=== PATIENT | male | born 1960 | race Hispanic/Latino ===

== ENCOUNTER → 2017-04-29 | Outpatient (CLI) | payer MEDICARE ==
--- NOTE | 2017-05-07 16:31 | Pulmonary Function Test ---
DATE OF STUDY: April 30, 2017 SPIROMETRY: Spirometry demonstrates evidence of moderate to severe obstruction. FEV1 decreased at 1.69 liters or 51% predicted, FVC 2.60 liters or 61% predicted in the setting of decreased FEV1 over FVC ratio. After bronchodilator administration, there was 18% FEV1 change and 15% FVC change. Flow volume loop demonstrates mildly scooped-out expiratory limb and normal inspiratory limb suggestive of common obstructive diseases such as asthma or bronchitis. LUNG VOLUMES: Lung volumes performed by nitrogen washout testing demonstrated no evidence of restriction. Total lung capacity 6.99 liters or 107% predicted but mild hyperinflation noted with RV of 148% predicted. DIFFUSION CAPACITY: Diffusion capacity with moderate decrease at 14.75 mL per mmHg per minute or 50% predicted. SUMMARY: Moderate to severe obstruction with moderate diffusion impairment. This is most often seen in emphysema. Clinical correlation is recommended. Job#: [id number] EV
== END ==
LOC: RESP 13:48
PROVIDERS: ATTEND Internal Medicine Critical Care Medicine
DX: J42 Unspecified chronic bronchitis (principal); J44.9 Chronic obstructive pulmonary disease, unspecified; C34.90 Malignant neoplasm of unspecified part of unspecified bronchus or lung; J84.10 Pulmonary fibrosis, unspecified; R41.3 Other amnesia; G47.33 Obstructive sleep apnea (adult) (pediatric); Z72.0 Tobacco use
CPT/HCPCS: 94060; 94727; 94729

== ENCOUNTER → 2017-05-05 | Outpatient (CLI) | payer MEDICARE ==
--- NOTE | 2017-05-05 17:39 | Diagnostic Imaging Report ---
EXAM: CT Chest WITHOUT contrast INDICATION: \[id number] \S\[id number] \S\CHRONIC BRONCHITIS / COPD COMPARISON: Chest CT dated 02/12/2016 TECHNIQUE: Chest was scanned utilizing a multidetector helical scanner from the lung apex through the level of the adrenal glands without administration of IV contrast. Absence of intravenous contrast decreases sensitivity for detection of lymphadenopathy and vascular pathology. Coronal and sagittal reformations were obtained. Routine protocol was performed. IV CONTRAST: None COMPLICATIONS: None RADIATION DOSE: Total DLP: 576.23 mGy*cm Estimated effective dose: (DLP x 0.014 x size factor) mSv CTDIvol has been reviewed. It is below the limits set by the Radiation Protocol Committee (RPC). FINDINGS: LINES/ TUBES: None. LUNGS AND AIRWAYS: Again seen left hemidiaphragm elevation with evidence of left upper lobectomy. Unchanged centrilobular and paraseptal emphysematous changes, most notable in right upper lobe. There is also unchanged interlobular septal thickening of the left lower lobe with adjacent mild pleural thickening and scarring. Unchanged punctate right lower lobe nodule (series 3, image 72). Tree-in-bud opacities, most prominent in left lower lung field, new from prior exam. Airways are normal. PLEURA: The pleural spaces are clear. HEART AND MEDIASTINUM: The thyroid gland is normal. Scattered mediastinal lymph nodes appear slightly more prominent when compared to prior exam. For example 1 cm right paratracheal lymph node (/48), previously measured 0.8 cm. 1 cm subcarinal lymph nodes (/69) previously measured 0.9 cm. The heart is normal in size.. There is no pericardial effusion. Left hilar surgical clips. UPPER ABDOMEN: Unremarkable. Unchanged nonspecific 1.1 cm peripancreatic and 1.3 cm portacaval lymph nodes. BONES: Unremarkable. Posterior left rib resection from prior surgery. SOFT TISSUES: Unremarkable. IMPRESSION: 1. New tree-in-bud opacities, most notable in left lower lung field, concerning for infectious/inflammatory process such chest infectious bronchitis or bronchiolitis. Also in the differential is neoplastic etiology such as bronchioloalveolar cell carcinoma, although less likely. Recommend short-term follow-up to ensure resolution. 2. Minimally more prominent scattered mediastinal lymph nodes. Recommend attention on follow-up examination. 3. Additional changes of the lungs, stable when compared to CT dated 02/12/2016. Signed by: Dr. Dayday Garduno MD on 05/05/2017 5:36 PM
== END ==
LOC: CT 16:15
PROVIDERS: ATTEND Internal Medicine Critical Care Medicine
DX: C34.90 Malignant neoplasm of unspecified part of unspecified bronchus or lung (principal); J42 Unspecified chronic bronchitis; J44.9 Chronic obstructive pulmonary disease, unspecified; J84.10 Pulmonary fibrosis, unspecified; G47.33 Obstructive sleep apnea (adult) (pediatric); G47.36 Sleep related hypoventilation in conditions classified elsewhere; Z72.0 Tobacco use
CPT/HCPCS: 71250

== ENCOUNTER → 2017-06-17 | Outpatient (CLI) | payer MEDICARE | LOC: LAB 15:59 | PROVIDERS: ATTEND Internal Medicine Critical Care Medicine | DX: J42 Unspecified chronic bronchitis (principal); J44.9 Chronic obstructive pulmonary disease, unspecified; J84.10 Pulmonary fibrosis, unspecified; C34.90 Malignant neoplasm of unspecified part of unspecified bronchus or lung; G47.33 Obstructive sleep apnea (adult) (pediatric); G47.36 Sleep related hypoventilation in conditions classified elsewhere; Z72.0 Tobacco use | CPT/HCPCS: 87070; 87186; 87205 ==

== ENCOUNTER 2017-07-28 00:34 | Inpatient (IN) | payer MEDICARE ==
[~2017-07-28] VITALS: Ht 170.2 cm; Wt 90.8 kg
--- OUTSIDE RECORDS SUMMARY | 2017-07-28 00:37 | XMS REPORT ---
Author Author [facility] Address Unknown Phone Unavailable Care Team Providers Care Field Sales Associate Name Role Phone JEFFREY ZACARIAS Unavailable Unavailable Problems This patient has no known problems. Allergies, Adverse Reactions, Alerts This patient has no known allergies or adverse reactions. Medications This patient has no known medications. Encounters Start Date/Time End Date/Time Encounter Type Admission Type Attending Clinicians Care Facility Care Department Encounter ID 2016-09-26 00:00:00 2016-09-27 00:00:00 Outpatient [facility] [id number] Results Test Description Test Time Test Comments Text Results Atomic Results Result Comments CT CHEST WO [place] [address] Patient Name: HARIKA SANDOVAL JR MR #: [id number] : 1960 Age/Sex: 56/M Req # : [id number] Adm Physician: Ordered by: JEFFREY ZACARIAS MD Report #: [id number] Location: CT Room/Bed: Procedure: [id number] CT/CT CHEST WO Exam Date: 05/05/17 Exam Time: 1645 REPORT STATUS: Signed EXAM: CT Chest WITHOUT contrast INDICATION: COMPARISON: Chest CT dated 02/12/2016 TECHNIQUE: Chest was scanned utilizing a multidetector helical scanner from the lung apex through the level of the adrenal glands without administration of IV contrast. Absence of intravenous contrast decreases sensitivity for detection of lymphadenopathy and vascular pathology. Coronal and sagittal reformations were obtained. Routine protocol was performed. IV CONTRAST: None COMPLICATIONS: None RADIATION DOSE: Total DLP: 576.23 mGy*cm Estimated effective dose: (DLP x 0.014 x size factor) mSv CTDIvol has been reviewed. It is below the limits set by the Radiation Protocol Committee (RPC). FINDINGS: LINES/ TUBES: None. LUNGS AND AIRWAYS: Again seen left hemidiaphragm elevation with evidence of left upper lobectomy. Unchanged centrilobular and paraseptal emphysematous changes , most notable in right upper lobe. There is also unchanged interlobular septal thickening of the left lower lobe with adjacent mild pleural thickening and scarring. Unchanged punctate right lower lobe nodule (series 3, image 72) . Tree-in-bud opacities, most prominent in left lower lung field, new from prior exam. Airways are normal. PLEURA: The pleural spaces are clear. HEART AND MEDIASTINUM: The thyroid gland is normal. Scattered mediastinal lymph nodes appear slightly more prominent when compared to prior exam. For example 1 cm right paratracheal lymph node (2/48), previously measured 0.8 cm. 1 cm subcarinal lymph nodes (2/69) previously measured 0.9 cm. The heart is normal in size.. There is no pericardial effusion. Left hilar surgical clips. UPPER ABDOMEN: Unremarkable. Unchanged nonspecific 1.1 cm peripancreatic and 1.3 cm portacaval lymph nodes. BONES: Unremarkable. Posterior left rib resection from prior surgery. SOFT TISSUES: Unremarkable. IMPRESSION: 1. New tree-in-bud opacities, most notable in left lower lung field, concerning for infectious/inflammatory process such chest infectious bronchitis or bronchiolitis. Also in the differential is neoplastic etiology such as bronchioloalveolar cell carcinoma, although less likely. Recommend short-term follow-up to ensure resolution. 2. Minimally more prominent scattered mediastinal lymph nodes. Recommend attention on follow-up examination. 3. Additional changes of the lungs, stable when compared to CT dated 02/12/2016. Signed by: Dr. Dayday Garduno MD on 05/05 5:36 PM Dictated By: DAYDAY GARDUNO MD [id number] Transcribed By: MELISA on 05/05/17 173 COPY TO: JEFFREY ZACARIAS MD
[2017-07-28] MEDS ORDERED: ALBUTEROL SULF 0.083% NEB SOLN 3 ML NEB NEB STA (00:58)
[2017-07-28] MEDS ORDERED: METHYLPREDNISOLONE SOD SUCC 125 MG/2ML VIAL IV ONE (01:00)
[2017-07-28] MEDS ORDERED: IPRATROPIUM BROMIDE 0.02% 2.5 ML NEB NEB ONE (01:00)
[2017-07-28] MEDS ORDERED: ACETAMINOPHEN 325 MG TAB PO ONE (01:00)
[2017-07-28] MEDS ORDERED: ACETAMINOPHEN 325 MG TAB ONE (01:04)
[2017-07-28 01:24] LABS: BASOPHILS % 0.3 % (0.0-1.0); EOSINOPHILS % 0.3 % (0.0-6.0); HEMATOCRIT 50.3 % (38.2-49.6); HEMOGLOBIN 17.5 g/dL (14.0-18.0); LYMPHOCYTES # (AUTO) 1.9 (1.0-3.2); LYMPHOCYTES % 16.4 % (18.0-39.1); MEAN CORPUSCULAR HEMOGLOBIN 32.2 pg (28-32); MEAN CORPUSCULAR HGB CONC 34.8 g/dL (31-35); MEAN CORPUSCULAR VOLUME 92.6 fL (81-99); MONOCYTES # (AUTO) 1.1 (0.2-0.8); NEUTROPHILS # (AUTO) 8.6 (2.1-6.9); NEUTROPHILS % 73.6 % (38.7-80.0); PLATELET COUNT 158 x10e3/uL (140-360); RED BLOOD COUNT 5.43 x10e6/uL (4.3-5.7); RED CELL DISTRIBUTION WIDTH 13.3 % (11.7-14.4)
[2017-07-28 01:41] LABS: ALANINE AMINOTRANSFERASE 59 IU/L (0-55); ALBUMIN 3.5 g/dL (3.5-5.0); ALBUMIN/GLOBULIN RATIO 0.7 (0.8-2.0); ALKALINE PHOSPHATASE 78 IU/L (40-150); ANION GAP 14.5 mmol/L (8-16); BLOOD UREA NITROGEN 12 mg/dL (7-26); BUN/CREATININE RATIO 11 (6-25); CALCIUM 9.3 mg/dL (8.4-10.2); CARBON DIOXIDE 26 mmol/L (22-29); CHLORIDE 99 mmol/L (98-107); CREATINE KINASE 648 IU/L (30-200); CREATININE, SERUM 1.09 mg/dL (0.72-1.25); EST GLOMERULAR FILTRATION RATE > 60 ML/MIN (60-); GLUCOSE 133 mg/dL (74-118); POTASSIUM 3.5 mmol/L (3.5-5.1); SODIUM 136 mmol/L (136-145)
--- NOTE | 2017-07-28 03:41 | Diagnostic Imaging Report ---
EXAMINATION: CHEST 2 VIEWS INDICATION: Shortness of breath, cough, fever COMPARISON: CT chest on 05/05/2017 FINDINGS: TUBES and LINES: None. LUNGS: Lungs are well inflated. Left lung base airspace opacity with air bronchogram. PLEURA: No pleural effusion or pneumothorax. HEART AND MEDIASTINUM: The cardiomediastinal silhouette is unremarkable. There are atherosclerotic calcifications within the aorta. BONES AND SOFT TISSUES: No acute osseous lesion. Soft tissues are unremarkable. UPPER ABDOMEN: No free air under the diaphragm. IMPRESSION: Findings compatible with left lower lobe pneumonia laterally. Signed by: Dr. Aroldo Ye M.D. on 07/28/2017 3:37 AM
[2017-07-28] MEDS ORDERED: ACETAMINOPHEN 325 MG TAB PO PRN (04:15)
[2017-07-28] MEDS: ALBUTEROL SULF 0.083% NEB SOLN 3 ML NEB NEB SCH ×5 (04:30→20:10)
[2017-07-28] MEDS ORDERED: ALBUTEROL SULF 0.083% NEB SOLN 3 ML NEB ONE (04:32)
[2017-07-28] MEDS: SODIUM CHLORIDE 0.9% 1000ML 1,000 ML IV SCH ×3 (04:45→20:57)
[2017-07-28] MEDS: CEFTRIAXONE SOD 1 GM VIAL IV SCH (04:45)
[2017-07-28] MEDS: AZITHROMYCIN 500MG/NS 250 ML 250 ML IV SCH (04:45)
[2017-07-28] MEDS: IPRATROPIUM BROMIDE 0.02% 2.5 ML NEB NEB SCH ×3 (06:00→20:10)
[2017-07-28] MEDS: METHYLPREDNISOLONE SOD SUCC 40 MG/ML VIAL IV SCH ×3 (06:10→16:58)
[2017-07-28 09:27] LABS: CREATINE KINASE 511 IU/L (30-200)
[2017-07-28 11:45] VITALS: BP 150/88
[2017-07-28 12:00] VITALS: BP 150/88
[2017-07-28 16:00] VITALS: BP 117/58
[2017-07-28 16:36] LABS: CREATINE KINASE 405 IU/L (30-200)
[2017-07-28 20:00] VITALS: BP 121/69
[2017-07-29] VITALS (8 sets, daily range): BP systolic 99–143; BP diastolic 55–80
[2017-07-29] MEDS: ALBUTEROL SULF 0.083% NEB SOLN 3 ML NEB NEB SCH ×7 (00:44→23:30)
--- NOTE | 2017-07-29 01:05 | Diagnostic Imaging Report ---
EXAM: CT CHEST WO INDICATION: Pneumonia, left lateral lower rib pain, history of lung cancer and lobectomy COMPARISON: CT of the chest May 05, 2017 TECHNIQUE: Multidetector CT scanning of the chest was performed. Coronal and sagittal multiplanar reformations were obtained. Routine protocol performed. IV Contrast: None CTDIvol has been reviewed. It is below the limits set by the Radiation Protocol Committee (RPC). FINDINGS: LUNGS AND AIRWAYS: The trachea and major bronchi are unremarkable. Unchanged centrilobular and paraseptal emphysema predominantly in the right upper lung. Stable surgical changes of left upper lobectomy. Focal areas of groundglass opacities in the right upper lung and areas of tiny centrilobular nodules in tree-in-bud configuration throughout both lungs with a left lower lobe predominance. PLEURA: No effusions or pneumothorax. HEART, MEDIASTINUM, VESSELS: The heart is within normal size limits. No abnormal pericardial effusion. No thoracic aortic aneurysm. Stable subcentimeter and subcarinal mediastinal lymph nodes. Stable left hilar surgical clips. UPPER ABDOMEN: No acute findings MUSCULOSKELETAL: No acute findings. No abnormality corresponding to site of patient's pain as indicated by the BB marker over the left chest laterally. IMPRESSION: Findings consistent with nonspecific bronchiolitis. No abnormal CT findings corresponding to patient's focal left-sided pain. Signed by: Dr. Elsie Murray M.D. on 07/29/2017 1:01 AM
--- NOTE | 2017-07-29 01:07 | Diagnostic Imaging Report ---
EXAM: CHEST SINGLE (PORTABLE), AP 1 view INDICATION: PA and lateral view of the chest July 28, 2017, shortness of breath COMPARISON: None FINDINGS: LINES/TUBES: None LUNGS: Bilateral reticulonodular changes (better seen by CT). Surgical changes of left upper lobectomy. PLEURA: No effusions or pneumothorax. HEART AND MEDIASTINUM: Normal size and contour. BONES AND SOFT TISSUES: No acute findings. Surgical changes of left posterior rib resection. IMPRESSION: Bilateral reticulonodular changes (better seen by CT), consistent with nonspecific bronchiolitis. Signed by: Dr. Elsie Murray M.D. on 07/29/2017 1:03 AM
--- NOTE | 2017-07-29 01:10 | Diagnostic Imaging Report ---
EXAM: LUMBAR SPINE, AP, lateral, coned lateral view and bilateral oblique views INDICATION: Left lower back pain status post fall COMPARISON: None FINDINGS: BONES: Five lumbar-type vertebral bodies. The alignment is within normal limits. No acute displaced fractures. No lytic or blastic lesions. DISCS: Mild multilevel anterior osteophytes. JOINTS: The facet joints and sacroiliac joints are unremarkable. SOFT TISSUES: Unremarkable IMPRESSION: No acute lumbar spine radiographic findings. Signed by: Dr. Elsie Murray M.D. on 07/29/2017 1:06 AM
[2017-07-29] MEDS: IPRATROPIUM BROMIDE 0.02% 2.5 ML NEB NEB SCH ×6 (03:55→23:30)
[2017-07-29] MEDS: AZITHROMYCIN 500MG/NS 250 ML 250 ML IV SCH (03:55)
[2017-07-29] MEDS: CEFTRIAXONE SOD 1 GM VIAL IV SCH (03:55)
[2017-07-29] MEDS: SODIUM CHLORIDE 0.9% 1000ML 1,000 ML IV SCH ×2 (04:55→11:10)
[2017-07-29] MEDS: METHYLPREDNISOLONE SOD SUCC 40 MG/ML VIAL IV SCH ×5 (05:33→21:00)
--- NOTE | 2017-07-29 06:44 | Consultation ---
DATE OF CONSULTATION: July 28, 2017 PULMONARY MEDICINE CONSULT PRIMARY CARE DOCTOR: Dr. Dee REASON FOR REFERRAL: Pneumonia. HISTORY: Mr. Sherwood is a pleasant 56-year-old gentleman with pneumonia. Patient well known to me from clinic where I am treating his pulmonary condition. Patient known with January 2013 lung mass that was discovered 2.7 cm. 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 Patient had 11 out of 11 lymph nodes that were negative. Patient furthermore had some invasion into the pleura, but he declined any chemo or radiation at that time. Patient has hx lobectomy. His PFTs have significantly stabilized. In surveillance, there is no evidence of any recurrence of this process. However, he has been having decreasing functionality. Recent April 2017 CAT scan showed left lower lobe pneumonitis/tree-in-bud opacities. Patient was requested for sputum sampling thereafter and consideration for repeat CAT scan for mid July. Patient claims that his shortness of breath has slowly been getting worse. There has been increasing cough since then. Patient also had recent fall 4 days prior to today where he fell on his left back. Patient with difficult time breathing since with lot of hyperventilation and inability to take deep breaths. He presents to the emergency room. Chest x-ray with left lower lobe pneumonitis. He is admitted. PAST MEDICAL HISTORY: Non squamous cell lung cancer, February 2013. Status post lobectomy. Insomnia. COPD. Chronic bronchitis. MEDICATIONS: Medication list reviewed per electronic record. Recent pulmonary medications include Anoro Ellipta, ProAir. Patient is also on trazodone recently. ALLERGIES: NO KNOWN DRUG ALLERGIES. SOCIAL HISTORY: No alcohol, drugs. Patient currently smokes 2 to 3 cigarettes a day. His history of smoking is since age 8 to active, usually 1 pack per day. Lives with itself in single-story dwelling. 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 It was working with asbestos in the early 80s although he would use a respirator at that time. FAMILY HISTORY: Noncontributory. REVIEW OF SYSTEMS: GENERAL: No weight changes. OPHTHALMOLOGIC: No double vision. ENT: No dry mouth. ENDOCRINE: No thyroid disease. PULMONARY: Denies asthma. IMMUNOLOGIC: Denies allergies. GI: Denies GERD. CARDIAC: Denies heart attack. MUSCULOSKELETAL: Mild arthritis. NEUROLOGIC: No seizures. DERMATOLOGIC: No rash. : No blood in urine. OBJECTIVE: VITAL SIGNS: Afebrile, vital signs noted per electronic record. GENERAL: In no acute distress, alert and calm. HEENT: Normocephalic, atraumatic. NECK: Supple. Throat midline. LUNGS: Bilateral air entry, few rhonchi, moderate wheezes, moderate air entry. CARDIOVASCULAR: S1, S2. No murmurs, rubs, or gallops. ABDOMEN: Soft, nontender. EXTREMITIES: No clubbing, no cyanosis, there is no edema. INTEGUMENT: No rash, no purpura. LABS: Labs reviewed per electronic record. RADIOGRAPHY: Reviewed per record. Left lower lobe pneumonitis, x-ray. IMPRESSION AND PLAN: 1. Left lower lobe pneumonitis. 2. Chest pain. 3. Recent fall. 4. History of April left lower lobe pneumonitis with tree-in-bud opacities. 5. History of lobectomy. 6. History of squamous cell carcinoma. 7. Constipation. 8. Insomnia. 9. Active smoking. Check computerized tomography chest. Furthermore, check lumbar imaging. Will see if we can capture all the ribs that way. Patient will have sputum culture sent off. Continue intravenous antibiotics for acute pneumonia. Lung expansion as feasible. As he gets better, will get physical therapy to work with him. Thank you very much, Dr. Delcid and Dr. Dee, for allowing me the chance to participate in the care of Mr. Sherwood. Do not hesitate to contact me if I can help in any way. Job#: [id number] DR CORBIN
[2017-07-29 06:58] LABS: BASOPHILS % 0.1 % (0.0-1.0); EOSINOPHILS % 0.1 % (0.0-6.0); HEMATOCRIT 42.2 % (38.2-49.6); HEMOGLOBIN 14.3 g/dL (14.0-18.0); LYMPHOCYTES # (AUTO) 1.1 (1.0-3.2); LYMPHOCYTES % 9.1 % (18.0-39.1); MEAN CORPUSCULAR HEMOGLOBIN 31.9 pg (28-32); MEAN CORPUSCULAR HGB CONC 33.9 g/dL (31-35); MEAN CORPUSCULAR VOLUME 94.2 fL (81-99); MONOCYTES # (AUTO) 0.6 (0.2-0.8); MONOCYTES % 5.2 % (4.4-11.3); NEUTROPHILS # (AUTO) 10.5 (2.1-6.9); NEUTROPHILS % 84.9 % (38.7-80.0); PLATELET COUNT 164 x10e3/uL (140-360); RED BLOOD COUNT 4.48 x10e6/uL (4.3-5.7); RED CELL DISTRIBUTION WIDTH 13.2 % (11.7-14.4)
[2017-07-29 07:29] LABS: ALANINE AMINOTRANSFERASE 41 IU/L (0-55); ALBUMIN 2.8 g/dL (3.5-5.0); ALBUMIN/GLOBULIN RATIO 0.8 (0.8-2.0); ALKALINE PHOSPHATASE 58 IU/L (40-150); BLOOD UREA NITROGEN 12 mg/dL (7-26); BUN/CREATININE RATIO 16 (6-25); CALCIUM 8.4 mg/dL (8.4-10.2); CARBON DIOXIDE 24 mmol/L (22-29); CHLORIDE 107 mmol/L (98-107); CREATINE KINASE 376 IU/L (30-200); CREATININE, SERUM 0.73 mg/dL (0.72-1.25); EST GLOMERULAR FILTRATION RATE > 60 ML/MIN (60-); GLUCOSE 164 mg/dL (74-118); SODIUM 138 mmol/L (136-145)
[2017-07-29] MEDS: DOCUSATE SODIUM 100 MG CAP PO SCH ×3 (09:00→21:00)
[2017-07-29] MEDS: POLYETHYLENE GLYCOL 3350 17 GM PACK PO SCH (09:00)
--- NOTE | 2017-07-29 21:28 | Progress Note ---
DATE: July 29, 2017 PULMONARY MEDICINE PROGRESS NOTE SUBJECTIVE: Mr. Sherwood seen and examined at bedside. Lumbar x-ray was unremarkable. CT of chest shows not just the left lower lobe pneumonia, but there was bilateral pneumonitis that was noted. Patient still with poor response in breathing. Still some shortness of breath. REVIEW OF SYSTEMS: No headache, no rash. OBJECTIVE VITAL SIGNS: Afebrile. Vitals noted per electronic record. GENERAL: No acute distress. Alert and calm. HEENT: Normocephalic, atraumatic. NECK: Supple. Throat midline. LUNGS: Bilateral air entry, moderate rhonchi, few wheezes. CARDIOVASCULAR: S1/S2. No murmurs, rubs or gallops. ABDOMEN: Soft, nontender. EXTREMITIES: No clubbing, no cyanosis, no edema. INTEGUMENT: No rash, no purpura. LABORATORY DATA: 12 BUN, 0.7 creatinine, 24 bicarbonate, 4.0 potassium, 12 white count, 42 hematocrit, 164,000 platelets. IMPRESSIONS AND PLAN 1. Bilateral pneumonitis, chronic and worse. 2. History of lung cancer, status post resection, remission. 3. Smoker. 4. Chronic obstructive pulmonary disease with exacerbation. 5. Constipation. 6. Insomnia. Will await bowel movements. Patient will be tentatively placed for bronchoscopy tomorrow. Patient will be n.p.o. Continue antibiotics for now. Steroids can be slowly weaned. Continue pain management for the rib pain. Will follow along closely. Job#: [id number] CQ
[2017-07-30] VITALS (9 sets, daily range): BP systolic 108–132; BP diastolic 55–81
[2017-07-30] MEDS: SODIUM CHLORIDE 0.9% 1000ML 1,000 ML IV SCH ×4 (00:57→17:36)
[2017-07-30] MEDS: ALBUTEROL SULF 0.083% NEB SOLN 3 ML NEB NEB SCH ×5 (03:18→19:43)
[2017-07-30] MEDS: IPRATROPIUM BROMIDE 0.02% 2.5 ML NEB NEB SCH ×6 (03:18→23:00)
[2017-07-30] MEDS: CEFTRIAXONE SOD 1 GM VIAL IV SCH (03:29)
[2017-07-30] MEDS: AZITHROMYCIN 500MG/NS 250 ML 250 ML IV SCH (03:36)
[2017-07-30] MEDS: POLYETHYLENE GLYCOL 3350 17 GM PACK PO SCH (09:00)
[2017-07-30] MEDS: DOCUSATE SODIUM 100 MG CAP PO SCH ×3 (09:00→21:00)
[2017-07-30] MEDS: METHYLPREDNISOLONE SOD SUCC 40 MG/ML VIAL IV SCH ×2 (09:13→21:00)
[2017-07-30] MEDS ORDERED: LIDOCAINE HCL 4% 50 ML BTL ONE (09:31)
[2017-07-30] MEDS ORDERED: LIDOCAINE HCL 2% 30 ML TUBE ONE (09:31)
[2017-07-30] MEDS ORDERED: EPINEPHRINE HCL INJ 1 MG/ML AMP ONE (09:31)
[2017-07-30] MEDS ORDERED: OXYMETAZOLINE HCL 0.05% NAS 1 SPRAY BTL ONE (09:31)
--- NOTE | 2017-07-30 10:56 | Progress Note ---
DATE: July 30, 2017 PULMONARY MEDICINE PROGRESS NOTE SUBJECTIVE: Mr. Sherwood was seen and examined at bedside. He has some mild shortness of breath on mobilization, although at rest he is okay. Blood culture times 2 still unremarkable without any growth to date. Had 3.2 L in, undocumented out. CK level is still coming down. REVIEW OF SYSTEMS: No bleeding. No rash. OBJECTIVE VITAL SIGNS: Afebrile. Vitals noted per electronic record. GENERAL: No acute distress. Alert and calm. HEENT: Normocephalic, atraumatic. NECK: Supple. Throat midline. LUNGS: Bilateral air entry, a few rhonchi. Wheeze is better today. CARDIOVASCULAR: S1, S2. No murmurs, rubs or gallops. ABDOMEN: Soft, nontender. EXTREMITIES: No clubbing, no cyanosis. There is no edema. INTEGUMENT: No rash, no purpura. LABS: CK down to 376, albumin 2.8. IMPRESSION AND PLAN 1. Persistent pneumonitis, worsening. 2. Chronic obstructive pulmonary disease with exacerbation. 3. History of lung cancer, status post lobectomy. 4. Active smoker. Bronchoscopy today. I have discussed the risks, benefits and alternatives, and he agrees to undergo it. Will continue interim antibiotics. At the same time, will wean the steroids down. Continue medicines to ensure appropriate bowel movements as he is reporting constipation of late. Follow up closely. Enhance nutrition as tolerated after this procedure. Job#: [id number]
[2017-07-30 12:13] LABS: BODY FLUID APPEARANCE TURBID; BODY FLUID COLOR YELLOW; BODY FLUID TYPE LAVAGE
[2017-07-30 12:14] LABS: RBC,BODY FLUID 8007 cells/uL; WBC,BODY FLUID 1398 cells/uL
--- NOTE | 2017-07-30 13:01 | Operative Report ---
DATE OF PROCEDURE: July 30, 2017 DIAGNOSTIC PROCEDURE: Diagnostic bronchoscopy with washes, lavage, lung biopsy. INDICATIONS: Persistent pneumonitis. ANESTHESIA: General anesthesia per anesthesiology. CONSENT: Informed consent from the patient. FINDINGS: Endotracheal tube inserted into the patient's airway by anesthesia. The flexible bronchoscope was inserted into the endotracheal tube where the airways were inspected. There was immediate note of slight bloody contents already in the airway, even prior to starting the procedure. These were suctioned, but did not readily clear up. The airways were inspected to have normal configuration, except noting that the left upper lobe stump was closed off and in place. The patient was without any endobronchial lesions noted. The patient did have some small to moderate purulent secretions that also had to be suctioned. The scope was wedged in the left lower lobe anterior segment with lavage attempted, but a poor return. Therefore, a lavage was performed of the right middle lobe airway. Thereafter, washes were performed. Forceps biopsies were performed of the left lower lobe airways. Thereafter, after hemostasis was achieved, the procedure was terminated, and the patient was allowed to recover with anesthesia. COMPLICATIONS: None. Chest x-ray pending. ESTIMATED BLOOD LOSS: Less than 2 mL. IMPRESSION 1. Bronchoscopy with washes, lavage of left lower lobe, left lower lobe transbronchial lung biopsies. 2. Mild bloody airways even at baseline. RECOMMENDATIONS: Follow up results. Continue care at this time. Job#: [id number]
[2017-07-30 13:09] LABS: LYMPHOCYTES,BODY FLUID 7 %; MONO/MACROPHG,BODY FLUID 3 %; NEUTROPHILS,BODY FLUID 89 %; OTHER CELLS,BODY FLUID 1 %
--- NOTE | 2017-07-30 14:07 | Diagnostic Imaging Report ---
PROCEDURE: A single AP view of the chest. COMPARISON: Chest CT and radiograph 07/29/2017. INDICATIONS: POST LUNG BIOPSY FINDINGS: See impression. IMPRESSION: 1. Increased conspicuity and rounded appearance of a right upper lobe opacity which may correspond to the site of biopsy and represent postbiopsy hemorrhage. No pneumothorax. 2. Additional scattered opacities corresponding to groundglass opacities and tree-in-bud opacities on chest CT. 3. Left upper lobectomy change. Dictated by: Jac Mcduffie M.D. on 07/30/2017 at 14:08 Electronically approved by: Jac Mcduffie M.D. on 07/30/2017 at 14:08
[2017-07-30] MEDS ORDERED: SEVOFLURANE INHAL SOLN 250 ML PEN BTL ONE (17:41)
[2017-07-30] MEDS ORDERED: ONDANSETRON HCL INJ 2 MG/ML VIAL ONE (17:41)
[2017-07-30] MEDS ORDERED: PROPOFOL IV EMULSION 10 MG/ML 20 ML VIAL ONE (17:41)
[2017-07-30] MEDS ORDERED: LIDOCAINE HCL 2% LOCAL INJ 5 ML SDV VIAL INJ ONE (17:41)
[2017-07-30] MEDS ORDERED: SUCCINYLCHOLINE 200 MG/10 ML SYR ONE (17:41)
[2017-07-30] MEDS ORDERED: ROCURONIUM BROMIDE 10 MG/ML 5ML VIAL ONE (17:41)
[2017-07-30] MEDS ORDERED: DEXAMETHASONE SOD PHOS INJ 4 MG/ML VIAL ONE (17:41)
[2017-07-30] MEDS ORDERED: MIDAZOLAM HCL 2 MG/2 ML VIAL ONE (17:55)
[2017-07-30] MEDS ORDERED: FENTANYL CITRATE/PF 100MCG/2 ML INJ ONE (17:55)
[2017-07-31] VITALS (8 sets, daily range): BP systolic 103–153; BP diastolic 64–79
[2017-07-31] MEDS: ALBUTEROL SULF 0.083% NEB SOLN 3 ML NEB NEB SCH ×7 (00:15→23:05)
[2017-07-31] MEDS: IPRATROPIUM BROMIDE 0.02% 2.5 ML NEB NEB SCH ×6 (02:15→23:05)
[2017-07-31] MEDS: SODIUM CHLORIDE 0.9% 1000ML 1,000 ML IV SCH ×2 (02:30→11:00)
[2017-07-31] MEDS: CEFTRIAXONE SOD 1 GM VIAL IV SCH (03:18)
[2017-07-31] MEDS: AZITHROMYCIN 500MG/NS 250 ML 250 ML IV SCH (03:18)
[2017-07-31] MEDS: POLYETHYLENE GLYCOL 3350 17 GM PACK PO SCH (09:22)
[2017-07-31] MEDS: METHYLPREDNISOLONE SOD SUCC 40 MG/ML VIAL IV SCH (09:22)
[2017-07-31] MEDS: DOCUSATE SODIUM 100 MG CAP PO SCH ×3 (09:22→21:00)
[2017-07-31] MEDS: FLUCONAZOLE 200 MG/100 ML 100 ML IV SCH (11:45)
--- NOTE | 2017-07-31 17:06 | Progress Note ---
DATE: July 31, 2017 PULMONARY MEDICINE PROGRESS NOTE SUBJECTIVE: Mr. Sherwood was seen and examined at bedside. He continues to have coughing. However, shortness of breath is still present, it is better than before. So far preliminary bronchoscopy findings show predominance of neutrophils. Strep species is being grown so far. He is having bowel movements times 2 finally on medicines for his bowel movements. REVIEW OF SYSTEMS: No diarrhea, no bleeding. OBJECTIVE: VITAL SIGNS: Afebrile. Vital signs noted per electronic record. GENERAL: No acute distress, alert and calm. Intermittent cough. HEENT: Normocephalic, atraumatic. NECK: Supple. Throat midline. LUNGS: Bilateral air entry, a few rare wheezes, a few rhonchi. CARDIOVASCULAR: S1, S2. No murmurs, rubs, or gallops. ABDOMEN: Soft, nontender. EXTREMITIES: No clubbing, no cyanosis, there is no edema. INTEGUMENT: No rash. No purpura. LABS: Potassium 4.0, 12 BUN, 0.7 creatinine, 12 white count. IMPRESSION AND PLAN 1. Bilateral pneumonitis. 2. Refractory pneumonia. 3. Chronic obstructive pulmonary disease with exacerbation. 4. History of lung cancer and lobectomy. 5. Weakness. 6. Constipation. Follow up bronchoscopy findings. Continue IV antibiotics. Continue oxygen supplement. Will mobilize him slowly. Follow along closely. Job#: [id number] CAROL
[2017-08-01 00:05] VITALS: BP 137/72
[2017-08-01] MEDS: CEFTRIAXONE SOD 1 GM VIAL IV SCH (03:15)
[2017-08-01] MEDS: AZITHROMYCIN 500MG/NS 250 ML 250 ML IV SCH (03:15)
[2017-08-01] MEDS: ALBUTEROL SULF 0.083% NEB SOLN 3 ML NEB NEB SCH ×4 (03:40→19:48)
[2017-08-01] MEDS: IPRATROPIUM BROMIDE 0.02% 2.5 ML NEB NEB SCH ×4 (03:40→19:48)
[2017-08-01 03:50] VITALS: BP 134/69
[2017-08-01 07:30] VITALS: BP 120/58
[2017-08-01 08:04] VITALS: BP 149/69
[2017-08-01] MEDS: DOCUSATE SODIUM 100 MG CAP PO SCH ×3 (08:46→21:00)
[2017-08-01] MEDS: POLYETHYLENE GLYCOL 3350 17 GM PACK PO SCH (08:46)
[2017-08-01] MEDS: PREDNISONE 10 MG TAB PO SCH (08:46)
[2017-08-01] MEDS: SODIUM CHLORIDE 0.9% 1000ML 1,000 ML IV SCH ×2 (09:50→11:50)
[2017-08-01 11:39] VITALS: BP 143/83
[2017-08-01] MEDS: FLUCONAZOLE 200 MG/100 ML 100 ML IV SCH (12:15)
[2017-08-01 20:00] VITALS: BP 143/83
--- NOTE | 2017-08-01 23:36 | Progress Note ---
DATE: August 01, 2017 PULMONARY MEDICINE PROGRESS NOTE SUBJECTIVE: Mr. Sherwood was seen and examined at bedside. He claims he is feeling a little bit better. Patient on normal saline 125 mL per hour IV fluid. He is tolerating. There is no hemoptysis being expectorated right now. Patient continues to have ability to eat. REVIEW OF SYSTEMS: No headaches, no bleeding. OBJECTIVE VITAL SIGNS: Afebrile. Vital signs noted per the chart record. GENERAL: No acute distress, alert and calm. HEENT: Normocephalic, atraumatic. NECK: Supple. Throat midline. LUNGS: Bilateral air entry, decreased air entry, mild to moderate wheezes, a few rhonchi. CARDIOVASCULAR: S1, S2. No murmurs, rubs, or gallops. ABDOMEN: Soft, nontender. EXTREMITIES: No clubbing, no cyanosis. There is no edema. INTEGUMENT: No rash. No purpura. IMPRESSIONS 1. Bilateral pneumonitis. 2. Lung cancer status post lung resective surgery. 3. Chronic obstructive pulmonary disease with exacerbation. 4. Pneumonia. 5. Weakness, hemoptysis, both postbronchoscopy and also prebronchoscopy. PLAN: Continue current evaluation at this time. We will follow hemoptysis. Patient will have decreased IV fluids as he is getting better. Continue antibiotics. Follow up bronchoscopy, cultures to assist radiology for pneumonitis. We will follow along closely. Job#: [id number] CF MTDD
[2017-08-02] VITALS: BP 134/65
[2017-08-02] MEDS: ALBUTEROL SULF 0.083% NEB SOLN 3 ML NEB NEB SCH ×4 (01:12→12:41)
[2017-08-02] MEDS: IPRATROPIUM BROMIDE 0.02% 2.5 ML NEB NEB SCH ×3 (01:12→12:41)
[2017-08-02 02:28] VITALS: BP 134/65
[2017-08-02 04:00] VITALS: BP 134/63
[2017-08-02] MEDS: CEFTRIAXONE SOD 1 GM VIAL IV SCH (04:00)
[2017-08-02] MEDS: AZITHROMYCIN 500MG/NS 250 ML 250 ML IV SCH (04:00)
[2017-08-02 07:50] VITALS: BP 133/81
[2017-08-02] MEDS: PREDNISONE 10 MG TAB PO SCH (08:35)
[2017-08-02] MEDS: DOCUSATE SODIUM 100 MG CAP PO SCH ×2 (08:35→15:40)
[2017-08-02] MEDS: POLYETHYLENE GLYCOL 3350 17 GM PACK PO SCH (08:35)
[2017-08-02] MEDS: FLUCONAZOLE 200 MG/100 ML 100 ML IV SCH (10:01)
[2017-08-02 11:34] VITALS: BP 139/71
[2017-08-02] MEDS ORDERED: KEFLEX500 MG PO (15:44)
[2017-08-02] MEDS ORDERED: NICODERM CQ1 EAC2 TD (15:44)
[2017-08-02] MEDS ORDERED: PREDNISONE10 M1 PO (15:44)
[2017-08-02 16:07] VITALS: BP 131/66
--- NOTE | 2017-08-02 18:04 | Progress Note ---
DATE: August 02, 2017 PULMONARY MEDICINE PROGRESS NOTE SUBJECTIVE: Mr. Sherwood was seen and examined at bedside. He continues to have progress. He is having less shortness of breath. He does have now a commitment that he is going to quit smoking. Patient walked around and is feeling much better. REVIEW OF SYSTEMS: No bleeding, no chest pain. OBJECTIVE VITAL SIGNS: Vital signs reviewed per the electronic record. GENERALLY: No acute distress, alert and calm. HEENT: Normocephalic. NECK: Supple. Throat midline. LUNGS: Bilateral air entry. CARDIOVASCULAR: S1 and S2. ABDOMINAL: Soft. EXTREMITIES: No clubbing. INTEGUMENT: No rash. IMPRESSION AND PLAN 1. Chronic obstructive pulmonary disease with exacerbation. 2. Chronic smoker. 3. Pneumonia. 4. History of lung cancer and lung resective surgery. 5. Weakness, resolving. At this time patient is feeling better. I have discussed with him about discharge planning. He is ready to go home. He has had a lot of good progress. I have done some paperwork to help facilitate this. Patient expected to go home today, and outpatient followup will be given. Will call him with the results if anything comes back positive on the bronchoscopy. Job#: [id number] ANDREA
== END 2017-08-02 17:27 | disposition home or self-care (01) | DRG 166 ==
LOC: ER 00:34 → ERHOLD 04:46 → MED/SURG3 11:00
PROC: 0BBJ8ZX Excision of Left Lower Lung Lobe, Via Natural or Artificial Opening Endoscopic, Diagnostic (ICD-10-PCS; principal; 2017-07-30 10:00)
PROC: 0B9B8ZX Drainage of Left Lower Lobe Bronchus, Via Natural or Artificial Opening Endoscopic, Diagnostic (ICD-10-PCS; 2017-07-30 10:00)
DX: J44.1 Chronic obstructive pulmonary disease with (acute) exacerbation (principal); J69.0 Pneumonitis due to inhalation of food and vomit; E11.65 Type 2 diabetes mellitus with hyperglycemia; Z90.2 Acquired absence of lung [part of]; G47.00 Insomnia, unspecified; F17.210 Nicotine dependence, cigarettes, uncomplicated; K59.00 Constipation, unspecified; Z85.118 Personal history of other malignant neoplasm of bronchus and lung; G89.29 Other chronic pain; M54.5 Low back pain
CPT/HCPCS: 31623; 36415; 71045; 71046; 71250; 72110; 80053; 82550; 82553; 84484; 85025; 87040; 87071; 87102; 87116; 87186; 87205; 87206; 88112; 88305; 88312; 89051; 93005; 94640; 96361; 99284; J0171; J0456; J0696; J1100; J1450; J2001; J2250; J2405; J2920; J2930; J7030

== ENCOUNTER 2017-08-05 14:39 | Emergency (ER) | payer MEDICARE ==
[~2017-08-05] VITALS: Ht 170.2 cm; Wt 90.7 kg
[~2017-08-05 14:39] MED LIST: KEFLEX500 MG PO; NICODERM CQ1 EAC2 TD; PREDNISONE10 M1 PO
--- OUTSIDE RECORDS SUMMARY | 2017-08-05 14:42 | XMS REPORT | Continuity of Care Document ---
Author Author [facility] Organization [facility] Address [address] [place] [address] Phone Unavailable Care Team Providers Care Protection Consultant Name Role Phone PARAS GARCIA DO PCP Insurance Providers Guarantor Harpal Sherwood Jr Address [address] [address] Email [email or web address] Payer Medicare A & B Policy Number [id number] Subscriber's Name Harpal Sherwood Jr Relationship 18 Self / Same As Patient Effective Date 15 Advance Directives Directive Response Recorded Date/Time Does the patient have an advance directive? No 07/28/17 11:45am If yes, is advance directive on file with [facility]? No 07/28/17 11:45am If not on file with [facility] will patient provide a copy? No 07/28/17 11:45am Do you have a Directive to Physician? No 07/28/17 3:17am Do you have a Medical Power of Manager Demand? No 07/28/17 3:18am Do you have an out of hospital Do Not Resuscitate Order? No 07/28/17 3:18am Do you have any special needs we should be aware of? No 07/28/17 3:18am Do you have a support person here with you today? Yes 07/28/17 3:18am Did patient receive Notice of Privacy Practices? Yes 07/28/17 3:18am Did patient receive patient rights and responsibilities? Yes 07/28/17 3:18am Problems Medical Problem Onset Date Status COPD (chronic obstructive pulmonary disease) Unknown Pneumonia Unknown Medications Current Home Medications Medication Dose Units Route Directions Days Qty Instructions Start Date Cephalexin Monohydrate (Keflex) 500 Mg Capsule 1 Tab Oral Twice A Day 5 Days 08/02/17 Nicotine (Nicoderm Cq) 1 Each Patch.td24 14 Mg Transderm Daily 30 Days 08/02/17 Prednisone 10 Mg Tab.ds.pk 0 Oral Daily 8 Days 12 Tab Prednisone 10 mg tablets; Take 2 tablets daily x 4 days, then 1 tablet daily x 4 days, then stop 08/02/17 Social History Social History Problem Response Recorded Date/Time Onset Date Status Hx Psychiatric Problems No 07/28/2017 11:45am Not Applicable Not Applicable Smoking Status Start Date Stop Date Current some day smoker Hospital Discharge Instructions No hospital discharge instruction information available. Plan of Care Discharge Date 08/02/17 5:27pm Disposition HOME, SELF-CARE Instructions/Education Provided COPD Pneumonia - Bacterial Pneumonia - Chemical Pneumothorax Prescriptions See Medication Section Additional Instructions/Education Diet tolerated Functional Status Query Response Date Recorded Assistive Devices None July 28, 2017 11:45am Ambulation Ability Independent July 28, 2017 11:45am Toileting Ability Independent July 31, 2017 9:37am Allergies, Adverse Reactions, Alerts No known allergies. Immunizations No immunization information available. Vital Signs Acute Vital Signs Vital Response Date/Time Temperature (Fahrenheit) 97.3 degrees F (97.6 - 99.5) 08/02/2017 4:07pm Pulse Pulse Rate (adult) 76 bpm (60 - 90) 08/02/2017 4:07pm Respiratory Rate 20 bpm (12 - 24) 08/02/2017 4:07pm Blood Pressure 131/66 mm Hg 08/02/2017 4:07pm Height 5 ft 7 in 07/28/2017 12:49am Weight 200.19 lb 07/28/2017 11:45am Body Mass Index 31.4 kg/m^2 07/28/2017 11:45am Results Laboratory Results Test Name Result Units Flags Reference Collection Date/Time Result Date/ Time Comments White Blood Count 12.33 x10e3/uL H 4.8-10.8 07/29/2017 6:06am 2017 7:02am Red Blood Count 4.48 x10e6/uL 4.3-5.7 07/29/2017 6:06am 07/29/2017 7: 02am Hemoglobin 14.3 g/dL 14.0-18.0 07/29/2017 6:06am 07/29/2017 7:02am Hematocrit 42.2 % 38.2-49.6 07/29/2017 6:06am 07/29/2017 7:02am Mean Corpuscular Volume 94.2 fL 81-99 07/29/2017 6:06am 07/29/2017 7: 02am Mean Corpuscular Hemoglobin 31.9 pg 28-32 07/29/2017 6:06am 07/29/2017 7:02am Mean Corpuscular Hemoglobin Concent 33.9 g/dL 31-35 07/29/2017 6:06am 07/29/2017 7:02am Red Cell Distribution Width 13.2 % 11.7-14.4 07/29/2017 6:06am 2017 7:02am Platelet Count 164 x10e3/uL 140-360 07/29/2017 6:06am 07/29/2017 7: 02am Neutrophils (%) (Auto) 84.9 % H 38.7-80.0 07/29/2017 6:06am 07/29/2017 7 :02am Lymphocytes (%) (Auto) 9.1 % L 18.0-39.1 07/29/2017 6:06am 07/29/2017 7: 02am Monocytes (%) (Auto) 5.2 % 4.4-11.3 07/29/2017 6:06am 07/29/2017 7: 02am Eosinophils (%) (Auto) 0.1 % 0.0-6.0 07/29/2017 6:06am 07/29/2017 7: 02am Basophils (%) (Auto) 0.1 % 0.0-1.0 07/29/2017 6:07/29/2017 7:02am IM GRANULOCYTES % 0.6 % 0.0-1.0 07/29/2017 6:07/29/2017 7:02am Neutrophils # (Auto) 10.5 H 2.1-6.9 07/29/2017 6:07/29/2017 7: 02am Lymphocytes # (Auto) 1.1 1.0-3.2 07/29/2017 6:07/29/2017 7:02am Monocytes # (Auto) 0.6 0.2-0.8 07/29/2017 6:07/29/2017 7:02am Eosinophils # (Auto) 0.0 0.0-0.4 07/29/2017 6:07/29/2017 7:02am Basophils # (Auto) 0.0 0.0-0.1 07/29/2017 6:07/29/2017 7:02am Absolute Immature Granulocyte (auto 0.08 x10e3/uL 0-0.1 07/29/2017 6: 07/29/2017 7:02am Sodium Level 138 mmol/L 136-145 07/29/2017 6:07/29/2017 7:31am Potassium Level 4.0 mmol/L 3.5-5.1 07/29/2017 6:07/29/2017 7:31am Chloride Level 107 mmol/L 98-107 07/29/2017 6:07/29/2017 7:31am Carbon Dioxide Level 24 mmol/L 22-29 07/29/2017 6:07/29/2017 7: 31am Anion Gap 11.0 mmol/L 8-16 07/29/2017 6:07/29/2017 7:31am Blood Urea Nitrogen 12 mg/dL 7-26 07/29/2017 6:07/29/2017 7:31am Creatinine 0.73 mg/dL 0.72-1.25 07/29/2017 6:07/29/2017 7:31am BUN/Creatinine Ratio 16 6-25 07/29/2017 6:07/29/2017 7:31am Estimat Glomerular Filtration Rate > 60 ML/MIN 60- 07/29/2017 6: 7:31am Ranges were taken from the National Kidney Disease Education Program and the National Kid[employer] Foundation literature. Reference ranges: 60 or greater: Normal 16-59 (for 3 consecutive months): Chronic kidney disease 15 or less: Kidney failure Glucose Level 164 mg/dL H 74-118 07/29/2017 6:07/29/2017 7:31am Calcium Level 8.4 mg/dL 8.4-10.2 07/29/2017 6:07/29/2017 7:31am Total Bilirubin 0.2 mg/dL 0.2-1.2 07/29/2017 6:07/29/2017 7:31am Aspartate Amino Transf (AST/SGOT) 34 IU/L 5-34 07/29/2017 6:2017 7:31am Alanine Aminotransferase (ALT/SGPT) 41 IU/L 0-55 07/29/2017 6:01/2018 7:31am Total Protein 6.4 g/dL # L 6.5-8.1 07/29/2017 6:07/29/2017 7:31am Albumin 2.8 g/dL L 3.5-5.0 07/29/2017 6:07/29/2017 7:31am Globulin 3.6 g/dL H 2.3-3.5 07/29/2017 6:07/29/2017 7:31am Albumin/Globulin Ratio 0.8 0.8-2.0 07/29/2017 6:07/29/2017 7: 31am Alkaline Phosphatase 58 IU/L 40-150 07/29/2017 6:07/29/2017 7: 31am Creatine Kinase 376 IU/L H 30-200 07/29/2017 6:07/29/2017 7:31am Creatine Kinase MB 7.10 ng/mL H 0-5.0 07/29/2017 6:07/29/2017 7: 45am Troponin I < 0.001 ng/mL 0-0.300 07/29/2017 6:07/29/2017 7:45am Body Fluid Type LAVAGE 07/30/2017 10:20am 07/30/2017 12:14pm Body Fluid Color YELLOW 07/30/2017 10:20am 07/30/2017 12:14pm Body Fluid Appearance TURBID 07/30/2017 10:20am 07/30/2017 12:14pm Body Fluid WBC 1398 cells/uL 07/30/2017 10:20am 07/30/2017 12:14pm Body Fluid RBC 8007 cells/uL 07/30/2017 10:20am 07/30/2017 12:14pm Body Fluid Neutrophils 89 % 07/30/2017 10:20am 07/30/2017 1:12pm Body Fluid Lymphocytes 7 % 07/30/2017 10:20am 07/30/2017 1:12pm Body Fluid Monocytes 3 % 07/30/2017 10:20am 07/30/2017 1:12pm Body Fluid Other Cells 1 % 07/30/2017 10:20am 07/30/2017 1:12pm Body Fluid Total Cells Counted 100 07/30/2017 10:20am 07/30/2017 1: 12pm Microbiology Results Procedure Source Organism/Result Collection Date/Time Result Date/Time Result Status Sputum Culture Sputum, Expectorated Sputum SERRATIA MARCESCENS 06/17/2017 3: 51pm 06/19/2017 9:08am Final Blood Culture Blood NO GROWTH AFTER 5 DAYS, FINAL REPORT 07/28/2017 12: 53am 08/02/2017 1:20am Final Wound Culture Lung, Left SERRATIA MARCESCENS 07/30/2017 10:20am 08/02/2017 6:55am Preliminary STREPTOCOCCUS VIRIDANS 07/30/2017 10:20am 08/02/2017 6:55am Preliminary YEAST SPECIES 07/30/2017 10:20am 08/02/2017 6:55am Preliminary Procedures Procedure Status Date Provider(s) Bronchoscopy with biopsy Completed 07/30/17 JEFFREY ZACARIAS MD, FRANCISCO Bronchoscopy with biopsy Completed 07/30/17 JEFFREY ZACARIAS MD, ABISelina Computed tomography of chest without contrast Active 05/05/17 JEFFREY ZACARIAS MD, ABISelina X-ray of chest, two views Active 07/28/17 VIRAJ MOELLER MD Computed tomography of chest without contrast Active 07/29/17 JEFFREY ZACARIAS MD, ABISelina Encounters Encounter Location Arrival/Admit Date Discharge/Depart Date Attending Provider Discharged Inpatient [facility] 07/28/17 4:46am 08/02/17 5:27pm BROOK LOVE MD Registered Clinic [facility] 06/17/17 3:59pm JEFFREY ZACARIAS MD Registered Clinic [facility] 05/05/17 4:15pm JEFFREY ZACARIAS MD Registered Clinic [facility] 04/29/17 1:48pm JEFFREY ZACARIAS MD
[2017-08-05] MEDS ORDERED: KETOROLAC TROMETHAMINE 60 MG/2 ML VIAL IM ONE (16:15)
--- NOTE | 2017-08-05 17:00 | Diagnostic Imaging Report ---
PROCEDURE: Frontal and lateral views of the chest. COMPARISON: CT the chest from 07/29/2017. Chest radiograph from 07/30/2017. INDICATIONS: CHEST PAIN, PNEUMONIA FINDINGS: Lines/tubes: None. Lungs: Scattered airspace and nodular opacities have improved since prior radiographs. In particular, opacities in the right upper and left lower lobes have improved. Pleura: There is no pleural effusion or pneumothorax. Blunting of the left costophrenic angle is stable and is likely related to scarring Heart and mediastinum: The heart and the mediastinum are unchanged. Surgical clips are projected over the mediastinum. Bones: No acute bony abnormality. Multilevel spondylosis of the thoracic spine. Partial resection left posterior sixth rib with osseous bridging, unchanged. IMPRESSION: Since the prior radiograph from 07/30/2017, patchy airspace opacities in both lungs have improved. Dictated by: Blake Calderon M.D. on 08/05/2017 at 17:01 Electronically approved by: Blake Calderon M.D. on 08/05/2017 at 17:01
== END 2017-08-05 18:18 | disposition home or self-care (01) ==
LOC: ER 14:39
DX: R07.89 Other chest pain (principal); J98.4 Other disorders of lung
CPT/HCPCS: 36415; 71046; 84484; 93005; 99284; J1885

== ENCOUNTER → 2018-02-13 | Outpatient (CLI) | payer MEDICARE ==
--- NOTE | 2018-02-13 15:36 | Diagnostic Imaging Report ---
ADDENDUM #1 The following addendum is being made to comply with coding criteria, and does not substantially change the findings or recommendations of the original report All CT scans are performed using radiation dose reduction techniques. Technical factors are evaluated and adjusted to ensure appropriate moderation of exposure. Automated dose management technology is applied to adjust the radiation dose to minimize exposure while achieving a diagnostic-quality image Signed by: Dr. Wes Johnson M.D. on 02/16/2018 10:17 AM ORIGINAL REPORT EXAM: CT Chest WITHOUT contrast 02/13/2018 2:17 PM INDICATION: Shortness of breath. Bronchitis. Fibrosis COMPARISON: July 29, 2017 TECHNIQUE: Chest was scanned utilizing a multidetector helical scanner from the lung apex through the level of the adrenal glands without administration of IV contrast. Absence of intravenous contrast decreases sensitivity for detection of lymphadenopathy and vascular pathology. Coronal and sagittal reformations were obtained. Routine protocol was performed. IV CONTRAST: None RADIATION DOSE: Total DLP: 513.85 mGy*cm Estimated effective dose: (DLP x 0.014 x size factor) mSv COMPLICATIONS: None FINDINGS: LUNGS AND AIRWAYS: The trachea and major bronchi are unremarkable. Unchanged centrilobular and paraseptal emphysema predominantly in the right upper lung. Stable surgical changes of left upper lobectomy. The previously seen focal areas of groundglass opacities in the right upper lung and areas of tiny centrilobular nodules in tree-in-bud configuration throughout both lungs with a left lower lobe predominance have essentially resolved. PLEURA: No effusions or pneumothorax. HEART, MEDIASTINUM, VESSELS: The heart is within normal size limits. No abnormal pericardial effusion. No thoracic aortic aneurysm. Stable subcentimeter and subcarinal mediastinal lymph nodes. Stable left hilar surgical clips. UPPER ABDOMEN: No acute findings MUSCULOSKELETAL: No acute findings. IMPRESSION: Findings consistent with nonspecific bronchiolitis with chronic appearing changes in the lungs. Signed by: Dr. Wes Johnson M.D. on 02/13/2018 3:32 PM
== END ==
LOC: CT 14:07
PROVIDERS: ATTEND Internal Medicine Critical Care Medicine
DX: C34.90 Malignant neoplasm of unspecified part of unspecified bronchus or lung (principal); J18.9 Pneumonia, unspecified organism; J42 Unspecified chronic bronchitis; J44.9 Chronic obstructive pulmonary disease, unspecified; J84.10 Pulmonary fibrosis, unspecified; G47.33 Obstructive sleep apnea (adult) (pediatric); G47.36 Sleep related hypoventilation in conditions classified elsewhere; Z72.0 Tobacco use
CPT/HCPCS: 71250

== ENCOUNTER → 2019-03-23 | Outpatient (CLI) | payer MEDICARE ==
--- NOTE | 2019-03-23 16:24 | Diagnostic Imaging Report ---
CT of the chest, without contrast. History: Chronic bronchitis, lung fibrosis. Comparison: 02/13/2018. Technique: Multidetector CT scanning of the chest was performed from the level of the apices to the upper abdomen without contrast. Coronal and sagittal multiplanar reformations were obtained. RADIATION DOSE: Total DLP: 536.05 mGy*cm Dose modulation, iterative reconstruction, and/or weight based adjustment of the mA/kV was utilized to reduce the radiation dose to as low as reasonably achievable. FINDINGS: The thyroid and remaining visual structures within the base of the neck demonstrate no significant abnormalities. The thoracic aorta is normal course and caliber. The heart is not enlarged. Atherosclerotic calcifications are noted within the coronary arteries. No abnormal pericardial fluid is present. Stable appearing normal-sized mediastinal lymph nodes noted. There is no abnormal axillary, mediastinal, or hilar lymph node enlargement. Again identified are postsurgical changes from prior left upper lobectomy with multiple surgical clips noted within the left perihilar region. The trachea and proximal airways are patent. Again identified identified are grossly stable appearing paraseptal and centrilobular emphysematous changes, most prominent within the right upper lobe. There are clustered micronodules identified bilaterally, most prominent within the left lower lung zone and slightly improved from prior examinations. There is no evidence for consolidation, pneumothorax, mass/suspicious nodule, or pleural effusion. Limited views of the upper abdomen demonstrate no significant abnormalities. Left posterior rib resection from prior surgery again noted. The osseous structures otherwise demonstrate no evidence for acute fracture or destructive process. The extrathoracic soft tissues are unremarkable. IMPRESSION: Stable appearance of the chest including stable postsurgical surgical changes from prior left upper lobectomy, stable emphysematous changes, and improved clustered micronodules suggestive of a small airways infectious/inflammatory process such as bronchiolitis. Signed by: Dr. Bradley Jimenez MD on 03/23/2019 4:21 PM
== END ==
LOC: CT 15:11
PROVIDERS: ATTEND Internal Medicine Critical Care Medicine
DX: J18.9 Pneumonia, unspecified organism (principal); J44.9 Chronic obstructive pulmonary disease, unspecified; J84.10 Pulmonary fibrosis, unspecified; G47.33 Obstructive sleep apnea (adult) (pediatric); G47.36 Sleep related hypoventilation in conditions classified elsewhere; R51 Headache
CPT/HCPCS: 71250

== ENCOUNTER 2020-10-26 12:04 | Emergency (ER) | payer MEDICARE ==
[~2020-10-26] VITALS: Ht 170.2 cm; Wt 95.3 kg
[2020-10-26] MEDS ORDERED: ONDANSETRON HCL INJ 2MG/ML 2ML 2 MG/ML VIAL IV STA (12:32)
[2020-10-26] MEDS ORDERED: KETOROLAC TROMETHAMINE 30 MG/ML VIAL IV STA (12:32)
[2020-10-26 12:35] LABS: BASOPHILS # (AUTO) 0.1 (0.0-0.1); EOSINOPHILS # (AUTO) 0.3 (0.0-0.4); EOSINOPHILS % 2.4 % (0.0-6.0); HEMATOCRIT 46.6 % (38.2-49.6); LYMPHOCYTES % 38.3 % (18.0-39.1); MEAN CORPUSCULAR HEMOGLOBIN 31.8 pg (28-32); MEAN CORPUSCULAR HGB CONC 34.3 g/dL (31-35); MEAN CORPUSCULAR VOLUME 92.6 fL (81-99); MONOCYTES # (AUTO) 0.7 (0.2-0.8); MONOCYTES % 6.8 % (4.4-11.3); NEUTROPHILS # (AUTO) 5.3 (2.1-6.9); PLATELET COUNT 214 x10e3/uL (140-360); RED BLOOD COUNT 5.03 x10e6/uL (4.3-5.7); RED CELL DISTRIBUTION WIDTH 12.6 % (11.7-14.4)
[2020-10-26 12:54] LABS: ALANINE AMINOTRANSFERASE 27 IU/L (0-55); ALBUMIN 3.9 g/dL (3.5-5.0); ALBUMIN/GLOBULIN RATIO 1.1 (0.8-2.0); ALKALINE PHOSPHATASE 85 IU/L (40-150); ANION GAP 17.8 mmol/L (8-16); BLOOD UREA NITROGEN 8 mg/dL (7-26); BUN/CREATININE RATIO 9 (6-25); CALCIUM 8.7 mg/dL (8.4-10.2); CARBON DIOXIDE 22 mmol/L (22-29); CHLORIDE 103 mmol/L (98-107); CREATINE KINASE 115 IU/L (30-200); CREATININE, SERUM 0.86 mg/dL (0.72-1.25); EST GLOMERULAR FILTRATION RATE 90 ML/MIN (60-); GLUCOSE 148 mg/dL (74-118); POTASSIUM 3.8 mmol/L (3.5-5.1); SODIUM 139 mmol/L (136-145)
[2020-10-26 12:55] LABS: INR 0.9; PROTHROMBIN TIME 12.7 seconds (11.9-14.5)
== END 2020-10-26 16:04 | disposition home or self-care (01) ==
LOC: ER 12:10
DX: R07.9 Chest pain, unspecified (principal); I10 Essential (primary) hypertension; J44.9 Chronic obstructive pulmonary disease, unspecified; Z85.118 Personal history of other malignant neoplasm of bronchus and lung
CPT/HCPCS: 36415; 71045; 76705; 80053; 82550; 82553; 83690; 84484; 85025; 85610; 85730; 93005; 99284; J1885; J2405; U0002

== ENCOUNTER 2020-10-29 07:14 | Observation (INO) | payer MEDICARE ==
[~2020-10-29] VITALS: Ht 170.2 cm; Wt 95.3 kg
[2020-10-29] MEDS ORDERED: SODIUM CHLORIDE 0.9% 1000ML 1,000 ML IV STA (07:21)
[2020-10-29] MEDS ORDERED: ASPIRIN 81 MG CHEW TAB PO STA (07:21)
[2020-10-29 07:37] LABS: BASOPHILS # (AUTO) 0.1 (0.0-0.1); BASOPHILS % 0.7 % (0.0-1.0); EOSINOPHILS # (AUTO) 0.2 (0.0-0.4); EOSINOPHILS % 1.2 % (0.0-6.0); HEMOGLOBIN 15.1 g/dL (14.0-18.0); LYMPHOCYTES # (AUTO) 2.4 (1.0-3.2); LYMPHOCYTES % 17.6 % (18.0-39.1); MEAN CORPUSCULAR HGB CONC 34.3 g/dL (31-35); MEAN CORPUSCULAR VOLUME 93.2 fL (81-99); MONOCYTES # (AUTO) 0.9 (0.2-0.8); MONOCYTES % 6.4 % (4.4-11.3); NEUTROPHILS % 73.4 % (38.7-80.0); PLATELET COUNT 212 x10e3/uL (140-360); RED BLOOD COUNT 4.72 x10e6/uL (4.3-5.7); RED CELL DISTRIBUTION WIDTH 12.5 % (11.7-14.4)
[2020-10-29 07:57] LABS: ALANINE AMINOTRANSFERASE 20 IU/L (0-55); ALBUMIN 3.6 g/dL (3.5-5.0); ALBUMIN/GLOBULIN RATIO 1.1 (0.8-2.0); ALKALINE PHOSPHATASE 91 IU/L (40-150); BLOOD UREA NITROGEN 13 mg/dL (7-26); BUN/CREATININE RATIO 14 (6-25); CALCIUM 8.7 mg/dL (8.4-10.2); CARBON DIOXIDE 24 mmol/L (22-29); CHLORIDE 106 mmol/L (98-107); CREATINE KINASE 98 IU/L (30-200); CREATININE, SERUM 0.96 mg/dL (0.72-1.25); EST GLOMERULAR FILTRATION RATE 80 ML/MIN (60-); GLUCOSE 155 mg/dL (74-118); LIPASE 32 U/L (8-78); SODIUM 139 mmol/L (136-145)
[2020-10-29] MEDS ORDERED: NITROGLYCERIN 0.4 MG SUBL SL PRN (11:00)
[2020-10-29] MEDS ORDERED: MORPHINE SULFATE INJ 2 MG/ML SYR IV PRN (11:00)
[2020-10-29] MEDS ORDERED: ONDANSETRON HCL INJ 2MG/ML 2ML 2 MG/ML VIAL IV PRN (11:00)
[2020-10-29] MEDS: FAMOTIDINE 20 MG/2 ML VIAL IV SCH ×2 (12:05→23:11)
[2020-10-29 13:11] LABS: CREATINE KINASE MB 1.4 ng/mL (0-5.0)
[2020-10-29 15:25] VITALS: BP 118/74
[2020-10-29 18:23] LABS: CREATINE KINASE MB 1.7 ng/mL (0-5.0)
[2020-10-29 20:00] VITALS: BP 104/67
[2020-10-30] VITALS: BP 109/65
[2020-10-30 00:38] LABS: CREATINE KINASE 83 IU/L (30-200)
[2020-10-30 04:00] VITALS: BP 104/72
[2020-10-30 05:43] LABS: BASOPHILS # (AUTO) 0.1 (0.0-0.1); BASOPHILS % 0.7 % (0.0-1.0); EOSINOPHILS # (AUTO) 0.3 (0.0-0.4); EOSINOPHILS % 3.1 % (0.0-6.0); HEMATOCRIT 41.5 % (38.2-49.6); LYMPHOCYTES # (AUTO) 3.9 (1.0-3.2); LYMPHOCYTES % 35.6 % (18.0-39.1); MEAN CORPUSCULAR HEMOGLOBIN 31.6 pg (28-32); MEAN CORPUSCULAR HGB CONC 33.7 g/dL (31-35); MEAN CORPUSCULAR VOLUME 93.7 fL (81-99); MONOCYTES # (AUTO) 1.1 (0.2-0.8); NEUTROPHILS # (AUTO) 5.4 (2.1-6.9); NEUTROPHILS % 49.8 % (38.7-80.0); PLATELET COUNT 193 x10e3/uL (140-360); RED BLOOD COUNT 4.43 x10e6/uL (4.3-5.7); RED CELL DISTRIBUTION WIDTH 12.7 % (11.7-14.4)
[2020-10-30 06:21] LABS: ANION GAP 10.7 mmol/L (8-16); CALCIUM 8.2 mg/dL (8.4-10.2); CHOL/HDL RATIO 4.5 (3.9-4.7); CREATININE, SERUM 0.71 mg/dL (0.72-1.25); POTASSIUM 3.7 mmol/L (3.5-5.1)
[2020-10-30 07:41] VITALS: BP 109/62
[2020-10-30] MEDS ORDERED: ASPIRIN 81 MG ENTERIC COATED PO SCH (09:00)
[2020-10-30 11:51] VITALS: BP 112/61
[2020-10-30] MEDS ORDERED: ONDANSETRON HCL 4 MG ORAL DISINTEGRATING TAB PO PRN (13:15)
== END 2020-10-30 13:22 | disposition home or self-care (01) ==
LOC: ER 08:03 → ERHOLD 11:15 → INTOOBSV 11:15 → MED/SURG 15:14
DX: R07.2 Precordial pain (principal); I10 Essential (primary) hypertension; J44.9 Chronic obstructive pulmonary disease, unspecified; K21.9 Gastro-esophageal reflux disease without esophagitis; K80.20 Calculus of gallbladder without cholecystitis without obstruction; J18.9 Pneumonia, unspecified organism; Z72.0 Tobacco use; Z20.822 Contact with and (suspected) exposure to COVID-19
CPT/HCPCS: 36415 ×2; 71045; 80053 ×2; 80061; 82150; 82550 ×2; 82553 ×2; 83690; 83735; 83880; 84484 ×2; 85025 ×2; 93005; 99284; C9113; G0378 ×2; J7030; U0002

== ENCOUNTER 2022-05-18 14:15 | Emergency (ER) | payer MEDICARE ==
[~2022-05-18] VITALS: Ht 170.2 cm; Wt 74.8 kg
[2022-05-18 14:43] LABS: BASOPHILS # (AUTO) 0.1 (0.0-0.1); BASOPHILS % 0.6 % (0.0-1.0); EOSINOPHILS # (AUTO) 0.1 (0.0-0.4); EOSINOPHILS % 0.5 % (0.0-6.0); HEMATOCRIT 47.8 % (38.2-49.6); HEMOGLOBIN 15.6 g/dL (14.0-18.0); LYMPHOCYTES # (AUTO) 1.7 (1.0-3.2); MEAN CORPUSCULAR HEMOGLOBIN 31.8 pg (28-32); MEAN CORPUSCULAR HGB CONC 32.6 g/dL (31-35); MEAN CORPUSCULAR VOLUME 97.6 fL (81-99); MONOCYTES # (AUTO) 0.5 (0.2-0.8); MONOCYTES % 5.1 % (4.4-11.3); NEUTROPHILS # (AUTO) 7.3 (2.1-6.9); NEUTROPHILS % 75.3 % (38.7-80.0); PLATELET COUNT 210 x10e3/uL (140-360); RED CELL DISTRIBUTION WIDTH 12.5 % (11.7-14.4)
[2022-05-18 14:50] LABS: INR 0.96; PARTIAL THROMBOPLASTIN TIME 28.6 seconds (23.8-35.5)
[2022-05-18 15:00] LABS: ALBUMIN/GLOBULIN RATIO 1.1 (0.8-2.0); CALCIUM 8.9 mg/dL (8.4-10.2); CREATININE, SERUM 0.79 mg/dL (0.72-1.25)
[2022-05-18 15:06] LABS: CREATINE KINASE MB 0.9 ng/mL (0-5.0)
[2022-05-18] MEDS ORDERED: ONDANSETRON HCL INJ 2MG/ML 2ML 2 MG/ML VIAL IV STA (15:06)
[2022-05-18] MEDS ORDERED: SODIUM CHLORIDE 0.9% 1000ML 1,000 ML IV STA (15:06)
[2022-05-18] MEDS ORDERED: Morphine 4mg INJECTION 4 MG/ML INJ IV STA (15:06)
[2022-05-18] MEDS ORDERED: SODIUM CHLORIDE 0.9% 1000ML 1,000 ML ONE (15:23)
[2022-05-18] MEDS ORDERED: IOPAMIDOL 370 MG/ML 100 ML INFUS..BTL INJ ONE (15:25)
[2022-05-18] MEDS ORDERED: ONDANSETRON ODT4 MG PO (16:41)
[2022-05-18] MEDS ORDERED: DICYCLOMINE HCL20 MG PO (16:41)
[2022-05-18 16:42] VITALS: BP 139/87
== END 2022-05-18 17:04 | disposition home or self-care (01) ==
LOC: ER 15:03
DX: R10.13 Epigastric pain (principal); K80.50 Calculus of bile duct without cholangitis or cholecystitis without obstruction; R11.2 Nausea with vomiting, unspecified; I10 Essential (primary) hypertension; I71.40 Abdominal aortic aneurysm, without rupture, unspecified; J44.9 Chronic obstructive pulmonary disease, unspecified; Z85.118 Personal history of other malignant neoplasm of bronchus and lung; F17.210 Nicotine dependence, cigarettes, uncomplicated
CPT/HCPCS: 36415; 74177; 80053; 82550; 82553; 83690; 84484; 85025; 85610; 85730; 93005; 99284; C9113; J2270; J2405; J7030; Q9967

== ENCOUNTER 2022-06-14 11:21 | Emergency (ER) | payer MEDICARE ==
[~2022-06-14] VITALS: Ht 170.2 cm; Wt 74.8 kg
[~2022-06-14 11:21] MED LIST changes: +DICYCLOMINE HCL20 MG PO; +ONDANSETRON ODT4 MG PO
[2022-06-14] MEDS ORDERED: Morphine 4mg INJECTION 4 MG/ML INJ IV PRN (12:00)
[2022-06-14] MEDS ORDERED: ASPIRIN 81 MG CHEW TAB PO ONE (12:00)
[2022-06-14] MEDS ORDERED: ONDANSETRON HCL INJ 2MG/ML 2ML 2 MG/ML VIAL IV PRN (12:00)
[2022-06-14] MEDS ORDERED: SODIUM CHLORIDE 0.9% 1000ML 1,000 ML ONE (12:16)
[2022-06-14] MEDS ORDERED: ONDANSETRON HCL INJ 2MG/ML 2ML 2 MG/ML VIAL ONE (12:16)
[2022-06-14] MEDS ORDERED: Morphine 4mg INJECTION 4 MG/ML INJ ONE (12:16)
[2022-06-14 12:20] LABS: BASOPHILS # (AUTO) 0.1 (0.0-0.1); BASOPHILS % 0.9 % (0.0-1.0); EOSINOPHILS # (AUTO) 0.2 (0.0-0.4); EOSINOPHILS % 1.6 % (0.0-6.0); HEMATOCRIT 43.4 % (38.2-49.6); HEMOGLOBIN 15.1 g/dL (14.0-18.0); LYMPHOCYTES # (AUTO) 2.3 (1.0-3.2); LYMPHOCYTES % 22.9 % (18.0-39.1); MEAN CORPUSCULAR HEMOGLOBIN 32.3 pg (28-32); MEAN CORPUSCULAR HGB CONC 34.8 g/dL (31-35); MEAN CORPUSCULAR VOLUME 92.9 fL (81-99); MONOCYTES # (AUTO) 0.5 (0.2-0.8); MONOCYTES % 5.2 % (4.4-11.3); NEUTROPHILS % 69.1 % (38.7-80.0); PLATELET COUNT 216 x10e3/uL (140-360); RED BLOOD COUNT 4.67 x10e6/uL (4.3-5.7); RED CELL DISTRIBUTION WIDTH 12.9 % (11.7-14.4)
[2022-06-14 12:35] LABS: ALANINE AMINOTRANSFERASE 191 IU/L (0-55); ALBUMIN 3.9 g/dL (3.5-5.0); ALBUMIN/GLOBULIN RATIO 1.1 (0.8-2.0); ALKALINE PHOSPHATASE 293 IU/L (40-150); AMYLASE 122 U/L (25-125); ANION GAP 14.5 mmol/L (8-16); BLOOD UREA NITROGEN 12 mg/dL (7-26); BUN/CREATININE RATIO 16 (6-25); CALCIUM 9.2 mg/dL (8.4-10.2); CARBON DIOXIDE 23 mmol/L (22-29); CHLORIDE 102 mmol/L (98-107); CREATINE KINASE 63 IU/L (30-200); CREATININE, SERUM 0.74 mg/dL (0.72-1.25); GLUCOSE 147 mg/dL (74-118); LIPASE 69 U/L (8-78); POTASSIUM 3.5 mmol/L (3.5-5.1); SODIUM 136 mmol/L (136-145)
[2022-06-14] MEDS ORDERED: SODIUM CHLORIDE 0.9% 100 ML ONE (13:09)
[2022-06-14] MEDS ORDERED: IOPAMIDOL 370 MG/ML 100 ML INFUS..BTL INJ ONE (13:09)
[2022-06-14] MEDS ORDERED: DICYCLOMINE HCL20 MG PO (18:01)
[2022-06-14] MEDS ORDERED: ONDANSETRON ODT4 MG PO (18:01)
== END 2022-06-14 18:27 | disposition home or self-care (01) ==
LOC: ER 11:28
DX: R07.9 Chest pain, unspecified (principal); K80.50 Calculus of bile duct without cholangitis or cholecystitis without obstruction; Z20.822 Contact with and (suspected) exposure to COVID-19
CPT/HCPCS: 36415; 71045; 71275; 74174; 76705; 80053; 82150; 82550; 82553; 83690; 84484; 85025; 93005; 99284; J2270; J2405; J7030; J7050; Q9967; U0002

== ENCOUNTER 2022-06-16 20:28 | Inpatient (IN) | payer MEDICARE ==
[~2022-06-16] VITALS: Ht 170.2 cm; Wt 68.9 kg
[2022-06-16] MEDS ORDERED: ONDANSETRON HCL INJ 2MG/ML 2ML 2 MG/ML VIAL IV STA (20:31)
[2022-06-16 20:41] LABS: BASOPHILS % 0.4 % (0.0-1.0); EOSINOPHILS # (AUTO) 0.4 (0.0-0.4); EOSINOPHILS % 3.8 % (0.0-6.0); HEMOGLOBIN 15.6 g/dL (14.0-18.0); LYMPHOCYTES # (AUTO) 2.6 (1.0-3.2); LYMPHOCYTES % 24.7 % (18.0-39.1); MEAN CORPUSCULAR HEMOGLOBIN 31.6 pg (28-32); MEAN CORPUSCULAR HGB CONC 33.9 g/dL (31-35); MEAN CORPUSCULAR VOLUME 93.3 fL (81-99); MONOCYTES # (AUTO) 0.7 (0.2-0.8); MONOCYTES % 7.1 % (4.4-11.3); NEUTROPHILS # (AUTO) 6.7 (2.1-6.9); NEUTROPHILS % 63.8 % (38.7-80.0); PLATELET COUNT 214 x10e3/uL (140-360); RED BLOOD COUNT 4.93 x10e6/uL (4.3-5.7)
[2022-06-16] MEDS ORDERED: Morphine 4mg INJECTION 4 MG/ML INJ IV ONE (20:45)
[2022-06-16 21:05] LABS: ALANINE AMINOTRANSFERASE 213 IU/L (0-55); ALBUMIN 3.8 g/dL (3.5-5.0); ALKALINE PHOSPHATASE 345 IU/L (40-150); ANION GAP 14.9 mmol/L (8-16); BLOOD UREA NITROGEN 8 mg/dL (7-26); BUN/CREATININE RATIO 11 (6-25); CALCIUM 9.3 mg/dL (8.4-10.2); CARBON DIOXIDE 25 mmol/L (22-29); CHLORIDE 102 mmol/L (98-107); CREATINE KINASE 91 IU/L (30-200); CREATININE, SERUM 0.75 mg/dL (0.72-1.25); GLUCOSE 96 mg/dL (74-118); POTASSIUM 3.9 mmol/L (3.5-5.1); SODIUM 138 mmol/L (136-145)
[2022-06-16] MEDS ORDERED: ONDANSETRON HCL INJ 2MG/ML 2ML 2 MG/ML VIAL IV PRN (21:45)
[2022-06-16] MEDS: SODIUM CHLORIDE 0.9% 1000ML 1,000 ML IV SCH (22:35)
[2022-06-16 23:10] VITALS: BP 145/81
[2022-06-17] VITALS (8 sets, daily range): BP systolic 114–145; BP diastolic 70–81
[2022-06-17] MEDS ORDERED: ASPIRIN CHEW81 MG PO (00:39)
[2022-06-17] MEDS ORDERED: PEPCID AC10 MG PO (00:39)
[2022-06-17] MEDS: Morphine 4mg INJECTION 4 MG/ML INJ IV PRN (01:08)
[2022-06-17] MEDS: SODIUM CHLORIDE 0.9% 1000ML 1,000 ML IV SCH ×2 (06:33→18:14)
[2022-06-17 06:39] LABS: BASOPHILS # (AUTO) 0.1 (0.0-0.1); BASOPHILS % 0.6 % (0.0-1.0); EOSINOPHILS # (AUTO) 0.4 (0.0-0.4); EOSINOPHILS % 4.1 % (0.0-6.0); HEMATOCRIT 39.3 % (38.2-49.6); HEMOGLOBIN 13.4 g/dL (14.0-18.0); LYMPHOCYTES # (AUTO) 2.4 (1.0-3.2); LYMPHOCYTES % 23.2 % (18.0-39.1); MEAN CORPUSCULAR HEMOGLOBIN 32.4 pg (28-32); MEAN CORPUSCULAR HGB CONC 34.1 g/dL (31-35); MEAN CORPUSCULAR VOLUME 94.9 fL (81-99); MONOCYTES # (AUTO) 1.2 (0.2-0.8); MONOCYTES % 11.2 % (4.4-11.3); NEUTROPHILS # (AUTO) 6.3 (2.1-6.9); NEUTROPHILS % 60.4 % (38.7-80.0); PLATELET COUNT 182 x10e3/uL (140-360); RED BLOOD COUNT 4.14 x10e6/uL (4.3-5.7); RED CELL DISTRIBUTION WIDTH 12.9 % (11.7-14.4)
[2022-06-17 07:07] LABS: ALBUMIN 3.1 g/dL (3.5-5.0); ANION GAP 11.8 mmol/L (8-16); CALCIUM 8.4 mg/dL (8.4-10.2); CREATININE, SERUM 0.82 mg/dL (0.72-1.25); POTASSIUM 3.8 mmol/L (3.5-5.1)
[2022-06-18] VITALS (8 sets, daily range): BP systolic 107–136; BP diastolic 59–86
[2022-06-18] MEDS: SODIUM CHLORIDE 0.9% 1000ML 1,000 ML IV SCH ×3 (00:26→15:10)
[2022-06-18 06:11] LABS: BASOPHILS % 0.4 % (0.0-1.0); EOSINOPHILS # (AUTO) 0.5 (0.0-0.4); HEMATOCRIT 36.3 % (38.2-49.6); HEMOGLOBIN 12.9 g/dL (14.0-18.0); LYMPHOCYTES % 31.5 % (18.0-39.1); MEAN CORPUSCULAR HEMOGLOBIN 35.1 pg (28-32); MEAN CORPUSCULAR HGB CONC 35.5 g/dL (31-35); MEAN CORPUSCULAR VOLUME 98.9 fL (81-99); MONOCYTES # (AUTO) 1.1 (0.2-0.8); MONOCYTES % 11.7 % (4.4-11.3); NEUTROPHILS # (AUTO) 4.8 (2.1-6.9); NEUTROPHILS % 50.8 % (38.7-80.0); PLATELET COUNT 146 x10e3/uL (140-360); RED BLOOD COUNT 3.67 x10e6/uL (4.3-5.7); RED CELL DISTRIBUTION WIDTH 13.6 % (11.7-14.4)
[2022-06-18 06:44] LABS: ALBUMIN 2.9 g/dL (3.5-5.0); ANION GAP 12.5 mmol/L (8-16); CREATININE, SERUM 0.74 mg/dL (0.72-1.25); POTASSIUM 3.5 mmol/L (3.5-5.1)
[2022-06-18] MEDS: Morphine 4mg INJECTION 4 MG/ML INJ IV PRN (15:09)
[2022-06-19] VITALS (7 sets, daily range): BP systolic 99–135; BP diastolic 52–86
[2022-06-19] MEDS: SODIUM CHLORIDE 0.9% 1000ML 1,000 ML IV SCH ×2 (01:52→05:45)
[2022-06-19] MEDS: Morphine 4mg INJECTION 4 MG/ML INJ IV PRN (05:49)
[2022-06-19 06:04] LABS: BASOPHILS # (AUTO) 0.1 (0.0-0.1); BASOPHILS % 0.7 % (0.0-1.0); EOSINOPHILS # (AUTO) 0.5 (0.0-0.4); EOSINOPHILS % 5.1 % (0.0-6.0); HEMATOCRIT 36.4 % (38.2-49.6); HEMOGLOBIN 12.9 g/dL (14.0-18.0); LYMPHOCYTES # (AUTO) 3.1 (1.0-3.2); LYMPHOCYTES % 33.3 % (18.0-39.1); MEAN CORPUSCULAR HEMOGLOBIN 33.9 pg (28-32); MEAN CORPUSCULAR HGB CONC 35.4 g/dL (31-35); MEAN CORPUSCULAR VOLUME 95.5 fL (81-99); MONOCYTES % 10.4 % (4.4-11.3); NEUTROPHILS # (AUTO) 4.6 (2.1-6.9); NEUTROPHILS % 49.8 % (38.7-80.0); PLATELET COUNT 173 x10e3/uL (140-360); RED BLOOD COUNT 3.81 x10e6/uL (4.3-5.7); RED CELL DISTRIBUTION WIDTH 12.7 % (11.7-14.4)
[2022-06-19 06:34] LABS: ALBUMIN 2.8 g/dL (3.5-5.0); ALBUMIN/GLOBULIN RATIO 0.9 (0.8-2.0); ANION GAP 13.6 mmol/L (8-16); CREATININE, SERUM 0.71 mg/dL (0.72-1.25); MAGNESIUM 1.8 MG/DL (1.3-2.1); POTASSIUM 3.6 mmol/L (3.5-5.1)
[2022-06-19] MEDS ORDERED: DEXTROSE 5%/0.45% SOD CHL 1,000 ML IV ONE (09:15)
[2022-06-19] MEDS ORDERED: SEVOFLURANE INHAL SOLN 250 ML PEN BTL ONE (12:23)
[2022-06-19] MEDS ORDERED: ROCURONIUM BROMIDE 10 MG/ML 5ML VIAL IV ONE (12:23)
[2022-06-19] MEDS ORDERED: SUGAMMADEX SODIUM 200 MG/2 ML VIAL IV ONE ×2 (12:23→18:22)
[2022-06-19] MEDS ORDERED: PROPOFOL IV EMULSION 10 MG/ML 20 ML VIAL ONE (12:23)
[2022-06-19] MEDS ORDERED: ONDANSETRON HCL INJ 2MG/ML 2ML 2 MG/ML VIAL ONE (12:23)
[2022-06-19] MEDS ORDERED: DEXAMETHASONE SOD PHOS INJ 4 MG/ML SDV ONE (12:23)
[2022-06-19] MEDS ORDERED: SUCCINYLCHOLINE CHLORIDE 20 MG/ML 10ML VIAL ONE (12:23)
[2022-06-19] MEDS ORDERED: METOCLOPRAMIDE HCL 10 MG/2ML VIAL ONE (12:23)
[2022-06-19] MEDS ORDERED: POVIDONE IODINE 0.05% 0.05 % ML PO ONE (12:23)
[2022-06-19] MEDS ORDERED: FENTANYL CITRATE/PF 100MCG/2 ML INJ ONE (13:13)
[2022-06-19] MEDS ORDERED: IOPAMIDOL 610MG/1ML 300 MG/ML VIAL IV ONE (17:22)
[2022-06-19] MEDS ORDERED: INDOMETHACIN 50 MG SUPP.RECT RC ONE (17:35)
[2022-06-19] MEDS ORDERED: GLUCAGON FOR INJ 1 MG VIAL ONE (17:55)
[2022-06-19] MEDS ORDERED: SODIUM CHLORIDE 0.9% 250ML 250 ML ONE (19:24)
[2022-06-20] VITALS (9 sets, daily range): BP systolic 103–135; BP diastolic 52–72
[2022-06-20 06:06] LABS: BASOPHILS % 0.3 % (0.0-1.0); EOSINOPHILS % 0.2 % (0.0-6.0); HEMATOCRIT 39.1 % (38.2-49.6); HEMOGLOBIN 13.4 g/dL (14.0-18.0); LYMPHOCYTES # (AUTO) 1.5 (1.0-3.2); LYMPHOCYTES % 24.2 % (18.0-39.1); MEAN CORPUSCULAR HGB CONC 34.3 g/dL (31-35); MEAN CORPUSCULAR VOLUME 93.3 fL (81-99); MONOCYTES # (AUTO) 0.3 (0.2-0.8); MONOCYTES % 5.6 % (4.4-11.3); NEUTROPHILS # (AUTO) 4.2 (2.1-6.9); NEUTROPHILS % 69.2 % (38.7-80.0); PLATELET COUNT 200 x10e3/uL (140-360); RED BLOOD COUNT 4.19 x10e6/uL (4.3-5.7); RED CELL DISTRIBUTION WIDTH 12.4 % (11.7-14.4)
[2022-06-20 06:31] LABS: ALBUMIN 2.8 g/dL (3.5-5.0); ALBUMIN/GLOBULIN RATIO 0.9 (0.8-2.0); ANION GAP 14.2 mmol/L (8-16); CALCIUM 8.2 mg/dL (8.4-10.2); CREATININE, SERUM 0.76 mg/dL (0.72-1.25); MAGNESIUM 1.7 MG/DL (1.3-2.1); POTASSIUM 4.2 mmol/L (3.5-5.1)
[2022-06-20] MEDS ORDERED: BUPIVACAINE 0.5%/EPI 30 ML SDV INJ ONE (10:15)
[2022-06-20] MEDS ORDERED: ONDANSETRON HCL INJ 2MG/ML 2ML 2 MG/ML VIAL ONE (12:24)
[2022-06-20] MEDS ORDERED: LIDOCAINE HCL 2% LOCAL INJ 5 ML SDV VIAL INJ ONE (12:24)
[2022-06-20] MEDS ORDERED: GLYCOPYRROLATE INJ 0.2 MG/ML VIAL ONE (12:24)
[2022-06-20] MEDS ORDERED: POVIDONE IODINE 0.05% 0.05 % ML PO ONE (12:24)
[2022-06-20] MEDS ORDERED: DEXAMETHASONE SOD PHOS INJ 4 MG/ML SDV ONE (12:24)
[2022-06-20] MEDS ORDERED: SEVOFLURANE INHAL SOLN 250 ML PEN BTL ONE (12:24)
[2022-06-20] MEDS ORDERED: ROCURONIUM BROMIDE 10 MG/ML 5ML VIAL IV ONE (12:24)
[2022-06-20] MEDS ORDERED: PROPOFOL IV EMULSION 10 MG/ML 20 ML VIAL ONE (12:24)
[2022-06-20] MEDS ORDERED: FENTANYL CITRATE/PF 100MCG/2 ML INJ ONE ×2 (13:17→13:56)
[2022-06-20] MEDS ORDERED: MIDAZOLAM HCL 2 MG/2 ML VIAL ONE (13:17)
[2022-06-20] MEDS ORDERED: ONDANSETRON HCL INJ 2MG/ML 2ML 2 MG/ML VIAL IV PRN (13:30)
[2022-06-20] MEDS ORDERED: HYDROCODONE/APAP 7.5MG-325MG 1 EA TAB PO PRN (13:30)
[2022-06-20] MEDS: HYDROMORPHONE 1MG/1ML INJ IV PRN ×2 (18:00→21:21)
[2022-06-21] VITALS: BP 106/66
[2022-06-21] MEDS: HYDROMORPHONE 1MG/1ML INJ IV PRN (00:29)
[2022-06-21 04:10] VITALS: BP 128/70
[2022-06-21 05:52] LABS: BASOPHILS % 0.4 % (0.0-1.0); EOSINOPHILS % 0.4 % (0.0-6.0); HEMATOCRIT 36.8 % (38.2-49.6); HEMOGLOBIN 12.3 g/dL (14.0-18.0); LYMPHOCYTES # (AUTO) 2.6 (1.0-3.2); LYMPHOCYTES % 25.5 % (18.0-39.1); MEAN CORPUSCULAR HEMOGLOBIN 31.7 pg (28-32); MEAN CORPUSCULAR HGB CONC 33.4 g/dL (31-35); MEAN CORPUSCULAR VOLUME 94.8 fL (81-99); MONOCYTES % 9.8 % (4.4-11.3); NEUTROPHILS # (AUTO) 6.5 (2.1-6.9); NEUTROPHILS % 63.5 % (38.7-80.0); PLATELET COUNT 195 x10e3/uL (140-360); RED BLOOD COUNT 3.88 x10e6/uL (4.3-5.7); RED CELL DISTRIBUTION WIDTH 12.6 % (11.7-14.4)
[2022-06-21 06:13] LABS: ALBUMIN 2.6 g/dL (3.5-5.0); ALBUMIN/GLOBULIN RATIO 0.9 (0.8-2.0); ANION GAP 10.8 mmol/L (8-16); CALCIUM 7.9 mg/dL (8.4-10.2); CREATININE, SERUM 0.68 mg/dL (0.72-1.25); MAGNESIUM 1.8 MG/DL (1.3-2.1); POTASSIUM 3.8 mmol/L (3.5-5.1)
[2022-06-21 06:47] LABS: FERRITIN 378.62 ng/mL (21.81-274.66)
[2022-06-21 08:27] VITALS: BP 129/77
[2022-06-21] MEDS ORDERED: HYDROCODON-ACE1 EA12 PO (08:31)
[2022-06-21] MEDS ORDERED: CIPRO500 MG PO (08:31)
[2022-06-21] MEDS ORDERED: METRONIDAZOLE500 MG PO (08:31)
[2022-06-21 08:50] VITALS: BP 129/77
[2022-06-21 11:30] VITALS: BP 152/79
== END 2022-06-21 10:54 | disposition home or self-care (01) | DRG 419 ==
LOC: ER 20:32 → ERHOLD 21:37 → MED/SURG3 23:38
PROVIDERS: ADMIT Internal Medicine; ATTEND Internal Medicine
PROC: 0FCC8ZZ Extirpation of Matter from Ampulla of Vater, Via Natural or Artificial Opening Endoscopic (ICD-10-PCS; principal; 2022-06-19 17:21)
PROC: 0FT44ZZ Resection of Gallbladder, Percutaneous Endoscopic Approach (ICD-10-PCS; 2022-06-20)
DX: K80.70 Calculus of gallbladder and bile duct without cholecystitis without obstruction (principal); I10 Essential (primary) hypertension; J44.9 Chronic obstructive pulmonary disease, unspecified; F17.210 Nicotine dependence, cigarettes, uncomplicated; I71.43 Infrarenal abdominal aortic aneurysm, without rupture; K57.90 Diverticulosis of intestine, part unspecified, without perforation or abscess without bleeding; Z20.822 Contact with and (suspected) exposure to COVID-19; Z79.82 Long term (current) use of aspirin; Z85.118 Personal history of other malignant neoplasm of bronchus and lung
CPT/HCPCS: 36415; 43260; 74181; 74328; 80053; 82150; 82550; 82553; 82607; 82728; 82746; 83540; 83690; 83735; 84466; 84484; 85025; 88304; 93005; 94799; 96361; 99284; C1766; J0330; J1100; J1170; J1610; J2001; J2250; J2270; J2405; J2543; J2765; J3010; J7030; J7050